=== PATIENT | female | born 1995 | race Caucasian/White ===

== ENCOUNTER 2016-11-02 09:49 | Emergency (ER) | payer BC ==
[~2016-11-02] VITALS: Ht 157.5 cm; Wt 127.0 kg
[2016-11-02 09:50] VITALS: BP 162/87; PULSE 80; RESP 19; TEMP 97.2; O2SAT 97
[2016-11-02 10:28] LABS: BILIRUBIN,URINE 1+ (NEGATIVE); BLOOD, URINE 3+ (NEGATIVE); CLARITY/URINE CLOUDY (CLEAR); COLOR,URINE RED (YELLOW); GLUCOSE,URINE NEGATIVE (NEGATIVE); KETONES,URINE 1+ (NEGATIVE); LEUKOCYTE ESTERASE ,URINE TRACE (NEGATIVE); NITRITE, URINE NEGATIVE (NEGATIVE); PROTEIN URINE 2+ (NEGATIVE)
[2016-11-02 10:55] LABS: BACTERIA,URINE FEW /HPF (None Seen); RBC,URINE >100 /HPF (0-3)
[2016-11-02 11:12] LABS: BASOPHILS # (AUTO) 0.1 K/uL (0.0-0.2); BASOPHILS % (AUTO) 0.6 % (0.0-2.0); EOSINOPHILS # (AUTO) 0.4 K/uL (0.0-0.4); EOSINOPHILS % (AUTO) 4.4 % (0.0-4.0); HEMATOCRIT 38.6 % (36-48); HEMOGLOBIN 13.1 g/dL (12.0-16.0); LYMPHOCYTES # (AUTO) 1.3 K/uL (1.0-5.5); LYMPHOCYTES % (AUTO) 14.8 % (20.5-51.5); MEAN CORPUSCULAR HEMOGLOBIN 28 pg (27-31); MEAN CORPUSCULAR HGB CONC 34 % (32-36); MEAN CORPUSCULAR VOLUME 84 fL (79.0-98.0); MONOCYTES # (AUTO) 0.4 K/uL (0.0-1.0); MONOCYTES % (AUTO) 4.5 % (1.7-9.3); NEUTROPHILS # (AUTO) 6.6 K/uL (1.8-7.7); NEUTROPHILS % (AUTO) 75.7 % (40.0-70.0); PLATELET COUNT (AUTO) 306 K/uL (130-430); RED BLOOD CELL COUNT(AUTO) 4.61 MIL/uL (4.2-6.2); RED CELL DISTRIBUTION WIDTH 13.6 % (9.0-15.0); WHITE BLOOD COUNT (AUTO) 8.8 K/uL (4.8-10.8)
[2016-11-02 11:44] LABS: CALCIUM 9.1 mg/dL (8.4-11.0); CREATININE 0.62 mg/dL (0.55-1.30); POTASSIUM 4.3 mmol/L (3.5-5.1)
[2016-11-02 12:13] LABS: TOTAL BILIRUBIN 0.8 mg/dL (0.0-1.0)
[2016-11-02 14:22] VITALS: BP 149/86; PULSE 81; RESP 18; TEMP 97; O2SAT 98
== END 2016-11-02 14:22 | disposition home or self-care (01) ==
LOC: SED 09:49
DX: R10.30 Lower abdominal pain, unspecified (principal); J45.909 Unspecified asthma, uncomplicated; Z88.1 Allergy status to other antibiotic agents
CPT/HCPCS: 36415; 80053; 81000-TC; 81025; 82150-TC; 83690-TC; 84703; 85025; 85610-TC; 85730-TC; 87086; 99285

== ENCOUNTER 2018-04-01 09:33 | Emergency (ER) | payer BC ==
[~2018-04-01] VITALS: Ht 157.5 cm; Wt 99.8 kg
[2018-04-01 09:55] VITALS: BP_SYST 137
[2018-04-01 10:18] VITALS: BP_SYST 137
== END 2018-04-01 10:18 | disposition home or self-care (01) ==
LOC: SED 09:33
DX: R51 Headache (principal); R03.0 Elevated blood-pressure reading, without diagnosis of hypertension; J45.909 Unspecified asthma, uncomplicated; Z88.1 Allergy status to other antibiotic agents
CPT/HCPCS: 81025; 99283

== ENCOUNTER 2019-07-30 03:09 | Emergency (ER) | payer BC ==
[~2019-07-30] VITALS: Ht 157.5 cm; Wt 102.1 kg
[2019-07-30 03:15] VITALS: BP_SYST 141
--- NOTE | 2019-07-30 03:15 | NUR ---
Patient to ER bed 7 to gown for evaluation. Side rails up.
--- NOTE | 2019-07-30 03:30 | NUR ---
ER at bedside examining patient.
--- NOTE | 2019-07-30 03:45 | NUR ---
Pt went to ct scan, tolerated well. Will cont. to monitor.
[2019-07-30 03:57] LABS: STREPTOCOCCUS A SCREEN (RAPID) NEGATIVE (NEGATIVE)
--- NOTE | 2019-07-30 04:00 | NUR ---
Pt resting comfortably in bed, no signs of acute distress. Will cont. to monitor.
[2019-07-30 04:10] LABS: MONOTEST NEGATIVE (NEGATIVE)
[2019-07-30] MEDS ORDERED: PREDNISONE 20 MG TABLET PO ONE (04:15)
[2019-07-30] MEDS ORDERED: FAMOTIDINE 20 MG TABLET PO ONE (04:15)
[2019-07-30 04:25] LABS: BASOPHILS # (AUTO) 0.1 K/uL (0.0-0.2); BASOPHILS % (AUTO) 0.8 % (0.0-2.0); EOSINOPHILS # (AUTO) 0.7 K/uL (0.0-0.4); HEMATOCRIT 36.1 % (36-48); HEMOGLOBIN 12.3 g/dL (12.0-16.0); LYMPHOCYTES # (AUTO) 2.5 K/uL (1.0-5.5); LYMPHOCYTES % (AUTO) 28.4 % (20.5-51.5); MEAN CORPUSCULAR HEMOGLOBIN 30 pg (27-31); MEAN CORPUSCULAR HGB CONC 34 % (32-36); MEAN CORPUSCULAR VOLUME 87 fL (79.0-98.0); MONOCYTES # (AUTO) 0.6 K/uL (0.0-1.0); MONOCYTES % (AUTO) 6.7 % (1.7-9.3); NEUTROPHILS # (AUTO) 4.9 K/uL (1.8-7.7); NEUTROPHILS % (AUTO) 56.1 % (40.0-70.0); PLATELET COUNT (AUTO) 296 K/uL (130-430); RED BLOOD CELL COUNT(AUTO) 4.15 MIL/uL (4.2-6.2); RED CELL DISTRIBUTION WIDTH 14.3 % (9.0-15.0); WHITE BLOOD COUNT (AUTO) 8.7 K/uL (4.8-10.8)
[2019-07-30 04:28] LABS: CALCIUM 8.7 mg/dL (8.4-11.0); CREATININE 0.64 mg/dL (0.55-1.30); POTASSIUM 3.4 mmol/L (3.5-5.1)
[2019-07-30 04:34] LABS: ALBUMIN 3.9 g/dL (3.4-4.8); TOTAL BILIRUBIN 0.6 mg/dL (0.0-1.0)
[2019-07-30 05:53] VITALS: BP_SYST 141
--- NOTE | 2019-07-30 05:53 | NUR ---
Patient given written and verbal discharge instructions and verbalizes understanding. ER MD Dr. Weiss discussed with patient the results and treatment provided. Patient in stable condition. ID arm band removed. Patient educated on pain management and to follow up with PMD. Pain Scale 0/10. Opportunity for questions provided and answered. Medication side effect fact sheet provided.
== END 2019-07-30 05:53 | disposition home or self-care (01) ==
LOC: SED 03:09
DX: T78.40XA Allergy, unspecified, initial encounter (principal); X58.XXXA Exposure to other specified factors, initial encounter; R20.0 Anesthesia of skin; R07.89 Other chest pain; M79.602 Pain in left arm; Z88.0 Allergy status to penicillin
CPT/HCPCS: 36415; 70450; 80053; 81025; 82550; 84484; 85025; 86308; 86403; 87081; 93005; 99284; J7512

== ENCOUNTER 2020-06-13 09:38 | Emergency (ER) | payer BC ==
[~2020-06-13] VITALS: Ht 157.5 cm; Wt 113.4 kg
[2020-06-13 09:38] VITALS: BP_SYST 121
--- NOTE | 2020-06-13 09:38 | NUR ---
BROUGHT BACK TO BED #7 AND TRIAGED.REPORT GIVEN TO JOSÉ LUIS
--- NOTE | 2020-06-13 09:40 | NUR ---
Patient arrived in the ED c/o abdominal pain and nausea and vomiting for the last 2 days. Denied any chest pain or shortness of breath. Denied any fevers and chills. Patient is alert and oriented x4, respirations even and unlabored, speaking in full sentences, and ambulating with a steady gait. VSS, pain level 10/10. Informed of the approximate wait time. Instructed to notify ED staff for any changes in condition or worsening of symptoms while waiting to be seen by an ED provider. Patient verbalized understanding.
[2020-06-13] MEDS ORDERED: NACL 0.9% 1,000 ML IV ONE (09:51)
--- NOTE | 2020-06-13 09:55 | NUR ---
# 20 gauge angiocath placed to RAC. Use of asceptic technique. Opsite placed over site. Blood return noted. Blood for lab drawn from site. Flushed with 10 cc of normal saline. No evidence of infiltration noted. Patient tolerated well.
--- NOTE | 2020-06-13 09:57 | NUR ---
ER Dr. Peters at bedside examining patient.
--- NOTE | 2020-06-13 09:59 | NUR ---
Urine specimen collected and dipped as ordered by Dr. Peters. Patient tolerated the activity well.
[2020-06-13] MEDS ORDERED: ONDANSETRON HCL 4 MG/2 ML VIAL IVP ONE (10:00)
[2020-06-13] MEDS ORDERED: KETOROLAC TROMETHAMINE 30 MG VIAL IVP ONE (10:15)
--- NOTE | 2020-06-13 10:15 | NUR ---
Administered Toradol, Zofran IVP as ordered by Dr. Peters. Patient tolerated the medications well. See eMAR for details.
--- NOTE | 2020-06-13 10:40 | NUR ---
Administered Morphine Sulfate IVP as ordered by Dr. Peters. Patient tolerated the medications well. See eMAR for details.
[2020-06-13] MEDS ORDERED: MORPHINE 4 MG/ML INJ. SYRINGE IVP ONE (10:45)
--- NOTE | 2020-06-13 11:46 | NUR ---
DR BERGER AT BEDSIDE FOR RE-EVALUATION
[2020-06-13 11:56] VITALS: BP_SYST 132
--- NOTE | 2020-06-13 11:58 | NUR ---
Patient given written and verbal discharge instructions and verbalizes understanding. ER MD discussed with patient the results and treatment provided. Patient in stable condition. ID arm band removed. IV catheter removed intact and dressing applied, no active bleeding. Rx of given. Patient educated on pain management and to follow up with PMD. Pain Scale 2/10 Opportunity for questions provided and answered. Medication side effect fact sheet provided.
== END 2020-06-13 11:58 | disposition home or self-care (01) ==
LOC: SED 09:38
DX: R51 Headache (principal); R11.2 Nausea with vomiting, unspecified; J45.909 Unspecified asthma, uncomplicated; Z88.1 Allergy status to other antibiotic agents
CPT/HCPCS: 81002; 81025; 96374; 96375; 99284; J1885; J2270; J2405; J7030

== ENCOUNTER 2020-07-02 05:55 | Day surgery (SDC) | payer BC, SELFPAY ==
[~2020-07-02] VITALS: Ht 157.5 cm; Wt 108.9 kg
[2020-07-02 07:20] LABS: HCG,QUAL RESULT NEGATIVE (NEGATIVE)
[2020-07-02] MEDS ORDERED: hydrALAZINE HCL 20 MG/ML VIAL IVP PRN (08:15)
[2020-07-02] MEDS ORDERED: HYDROmorphone 1 MG INJ. 1 MG/ML AMPUL IVP PRN ×2 (08:15)
[2020-07-02] MEDS ORDERED: LR 1,000 ML IV SCH (08:15)
[2020-07-02] MEDS ORDERED: MEPERIDINE HCL/PF 25 MG/ML DISP.SYRIN IVP PRN (08:15)
[2020-07-02] MEDS ORDERED: METOCLOPRAMIDE HCL 10 MG/2 ML VIAL IVP PRN (08:15)
[2020-07-02] MEDS ORDERED: LABETALOL 100 MG/ 20ML VIAL IVP PRN (08:15)
[2020-07-02] MEDS ORDERED: MIDAZOLAM HCL 2 MG/2 ML VIAL (VERSED) IVP PRN (08:15)
[2020-07-02] MEDS ORDERED: ONDANSETRON HCL 4 MG/2 ML VIAL IVP PRN (08:15)
[2020-07-02 10:40] VITALS: BP_SYST 136
[2020-07-02] MEDS ORDERED: KETOROLAC TROMETHAMINE 30 MG VIAL IVP ONE (11:15)
[2020-07-02] MEDS ORDERED: KETOROLAC TROMETHAMINE 30 MG VIAL ONE (11:34)
== END 2020-07-02 12:40 | disposition still patient (30) ==
LOC: SMU 05:55 → SDS 05:55
PROVIDERS: ATTEND Otolaryngology
DX: J32.4 Chronic pansinusitis (principal); J30.5 Allergic rhinitis due to food; J34.89 Other specified disorders of nose and nasal sinuses; Z79.899 Other long term (current) drug therapy; Z20.828 Contact with and (suspected) exposure to other viral communicable diseases
CPT/HCPCS: 30140; 30520; 31237; 31267; 31298; 84703; 87070; 87075; 87101; 87116; 88305; C1726; J1885; U0003; 88311

== ENCOUNTER 2020-07-14 12:33 | Inpatient (IN) | payer BC, SELFPAY ==
[~2020-07-14] VITALS: Ht 157.5 cm; Wt 115.7 kg
[2020-07-14 13:35] LABS: BASOPHILS % (AUTO) 0.6 % (0.0-2.0); EOSINOPHILS # (AUTO) 0.1 K/uL (0.0-0.4); EOSINOPHILS % (AUTO) 1.9 % (0.0-4.0); HEMOGLOBIN 7.5 g/dL (12.0-16.0); LYMPHOCYTES # (AUTO) 1.6 K/uL (1.0-5.5); LYMPHOCYTES % (AUTO) 26.4 % (20.5-51.5); MEAN CORPUSCULAR HEMOGLOBIN 29 pg (27-31); MEAN CORPUSCULAR HGB CONC 34 % (32-36); MEAN CORPUSCULAR VOLUME 84 fL (79.0-98.0); MONOCYTES # (AUTO) 0.4 K/uL (0.0-1.0); NEUTROPHILS % (AUTO) 65.1 % (40.0-70.0); PLATELET COUNT (AUTO) 232 K/uL (130-430); RED CELL DISTRIBUTION WIDTH 14.7 % (9.0-15.0); WHITE BLOOD COUNT (AUTO) 6.2 K/uL (4.8-10.8)
[2020-07-14 13:52] LABS: CREATININE 0.55 mg/dL (0.55-1.30); HEMATOCRIT 21.9 % (36-48); POTASSIUM 3.7 mmol/L (3.5-5.1)
[2020-07-14] MEDS ORDERED: METOCLOPRAMIDE HCL 10 MG/2 ML VIAL IVP PRN (14:45)
[2020-07-14] MEDS ORDERED: 0.45% NACL 1,000 ML IV SCH (15:38)
[2020-07-14] MEDS ORDERED: DIPHENHYDRAMINE HCL 12.5 MG/5 ML UDC PO PRN (15:45)
[2020-07-14] MEDS ORDERED: CIPROFLOXACIN HCL 500 MG TABLET PO ONE (15:45)
[2020-07-14] MEDS: HYDROmorphone 1 MG INJ. 1 MG/ML AMPUL IVP PRN (16:15)
[2020-07-14] MEDS ORDERED: HYDROmorphone 1 MG INJ. 1 MG/ML AMPUL ONE (16:34)
--- NOTE | 2020-07-14 19:38 | NUR ---
ADMISSION: The patient, YONATHAN BLUE, 25 y/o, F admitted by DR. SKINNER, was given written information regarding hospital policies, unit procedures and contact persons. Valuables were checked and DOCUMENTED. Addendum: 07/14/20 at 2257 by Vivian Mascorro RN PER OR NURSE, THEY DID NOT DO MRSA SWAB BEFORE SURGERY. CURRENTLY UNABLE TO PERFORM SWAB DUE TO DX AND DRESSING.
[2020-07-14 19:41] VITALS: BP_SYST 129
[2020-07-14 20:00] VITALS: BP_SYST 135
--- NOTE | 2020-07-14 20:00 | NUR ---
pt.received s/p surgery;per ;nasal.nasal packing extant.packing in place,no drainage.v/s post -op series initiated. pt.has presented pain.to review emar med-list.pt.presents general status stable.respiratory status stable;unlabored@room air.02-sat%=100%.pt.had inquired r/e;diet;if she could eat regular food.to review the orders.r/r;diet status.pt.capable to reposition self.pt.presents iv access location:[email or web address].antecubital.call light/telephone placed w/in access of the pt.
[2020-07-14] MEDS: CIPROFLOXACIN HCL 500 MG TABLET PO SCH (20:23)
[2020-07-14] MEDS: MORPHINE 2 MG/ML INJ. SYRINGE IVP PRN (20:25)
--- NOTE | 2020-07-14 20:30 | NUR ---
i have administered morphine:2mg ivp.to assess the efficacy of the pain medication per pain mgx protocol.i have provided snacks/juice to the pt.2/t diet status order.
--- NOTE | 2020-07-14 21:00 | NUR ---
2100p medication.i have administered cipro:po.pt.capable to ingest the po medication w/out difficulty.
[2020-07-14] MEDS: HYDROcodone/ACETAMIN 5-325 MG TAB (NORCO/ VICODIN) PO PRN (21:24)
--- NOTE | 2020-07-14 21:30 | NUR ---
upon re-assessment of the efficacy of the pain medication pt.stated the pain remains present.i have administered norco;5/325mg po x2 tabs.to assess the efficacy of the pain medication per pain mgx protocol.no additional requests posited@this hour.
[2020-07-14] MEDS ORDERED: CIPROFLOXACIN HCL 500 MG TABLET PO SCH (22:00)
--- NOTE | 2020-07-14 22:00 | NUR ---
pt.assessed.pt.presents quiescent affect;calm,somnolent.per flacc pain mgx pt.absent facial grimaces/body posturing. pt.capable to reposition self.call light/telephone w/in reach of the pt.
[2020-07-14 22:30] VITALS: BP_SYST 136
--- NOTE | 2020-07-14 22:30 | NUR ---
the post-op v/s series has been completed.i have apprised the pt the subsequent v/s to be assessed@midnight.
[2020-07-15] VITALS: BP_SYST 145
--- NOTE | 2020-07-15 | NUR ---
pt.assessed.v/s assessed values wnl.no c/o pain,nausea.no requests posited@this hour.general status stable.respiratory status stabl;unlabored;02-sat%=98.pt.capable to reposition self.call light/telephone w/in reach of the pt.
--- NOTE | 2020-07-15 02:00 | NUR ---
pt.assessed.pt.presents quiescent affect;calm,somnolent.per flacc pain mgx pt.absent facial grimaces/body posturing. pt.capable to reposition self.call light/telephone w/in access of the pt.
[2020-07-15 08:17] LABS: CALCIUM 7.8 mg/dL (8.4-11.0); CREATININE 0.52 mg/dL (0.55-1.30); POTASSIUM 3.7 mmol/L (3.5-5.1)
[2020-07-15 08:35] VITALS: BP_SYST 122
[2020-07-15 08:39] LABS: BASOPHILS % (AUTO) 0.8 % (0.0-2.0); EOSINOPHILS # (AUTO) 0.5 K/uL (0.0-0.4); EOSINOPHILS % (AUTO) 7.9 % (0.0-4.0); HEMOGLOBIN 7.3 g/dL (12.0-16.0); LYMPHOCYTES # (AUTO) 2.5 K/uL (1.0-5.5); LYMPHOCYTES % (AUTO) 41.9 % (20.5-51.5); MEAN CORPUSCULAR HEMOGLOBIN 29 pg (27-31); MEAN CORPUSCULAR HGB CONC 34 % (32-36); MEAN CORPUSCULAR VOLUME 85 fL (79.0-98.0); MONOCYTES # (AUTO) 0.3 K/uL (0.0-1.0); MONOCYTES % (AUTO) 5.4 % (1.7-9.3); NEUTROPHILS # (AUTO) 2.6 K/uL (1.8-7.7); PLATELET COUNT (AUTO) 244 K/uL (130-430); RED BLOOD CELL COUNT(AUTO) 2.55 MIL/uL (4.2-6.2); WHITE BLOOD COUNT (AUTO) 5.9 K/uL (4.8-10.8)
[2020-07-15] MEDS: HYDROmorphone 1 MG INJ. 1 MG/ML AMPUL IVP PRN ×2 (08:50→14:58)
[2020-07-15] MEDS: ONDANSETRON HCL 4 MG/2 ML VIAL IVP PRN ×4 (08:55→18:48)
[2020-07-15] MEDS: CIPROFLOXACIN HCL 500 MG TABLET PO SCH ×2 (10:00→22:00)
[2020-07-15 10:04] LABS: HEMATOCRIT 21.6 % (36-48)
--- NOTE | 2020-07-15 11:53 | NUR ---
CONSULTATION PAGED REASON FOR CONSULTATION:SEVEREANEMIA WAS CONSULT CALLED?Y PERSON WHO WAS NOTIFIED:VERO CONSULTING PHYSICIAN:HUMBERTO LLAMAS PHARMACIST AIDE SPECIALTY:INTERNAL MEDICINE PHARMACIST AIDE PHONE NUMBER:[phone] REQUESTING PHYSICIAN:HELLEN MCKEON
--- NOTE | 2020-07-15 12:15 | NUR ---
PATIENT WAS HAVING PAIN 8/10 WAS GIVEN NORCO, PATIENT THREW UP PILLS. ZOFRAN WAS THEN GIVEN FOR NAUSEA. NAUSEA WAS RESOLVED.
--- NOTE | 2020-07-15 12:20 | NUR ---
PATIENT IN PAIN 10/10, GAVE MORPHINE. PAIN REDUCED TO 2/10. WILL CONTINUE TO MONITOR PATIENT. PATIENT ALSO STATED IV FELT WET, IV WAS REASSESSED. IV PATENT AND INTACT.
[2020-07-15] MEDS: HYDROcodone/ACETAMIN 5-325 MG TAB (NORCO/ VICODIN) PO PRN ×4 (12:27→21:15)
[2020-07-15] MEDS: MORPHINE 2 MG/ML INJ. SYRINGE IVP PRN ×5 (12:50→18:21)
--- NOTE | 2020-07-15 13:00 | NUR ---
PATIENT HAS BEEN COMPLAINING OF PAIN AND NAUSEA, MEDICATIONS HAVE BEEN GIVEN. MEDICATIONS CONTROL THE PAIN AND NAUSEA.
[2020-07-15] MEDS: LR 1,000 ML IV SCH (13:45)
--- NOTE | 2020-07-15 14:10 | NUR ---
PATIENT THREW UP MEDICATIONS GIVEN BY MOUTH, ZOFRAN WAS GIVEN AGAIN. WILL CONTINUE TO MONITOR FOR NAUSEA.
[2020-07-15] MEDS ORDERED: CHOLECALCIFEROL (VITAMIN D3) 2,000 UNIT TABLET PO ONE (15:30)
[2020-07-15] MEDS ORDERED: CALCIUM CARBONATE 500 MG/ TAB.CHEW PO ONE (15:30)
[2020-07-15] MEDS ORDERED: WATER FOR IRRIGATION,STERILE 1,000 ML IRRIG.SOLN IR ONE (15:35)
[2020-07-15] MEDS ORDERED: SUCCINYLCHOLINE CHLORIDE 20 MG/ML(QUELICIN) ONE (15:35)
[2020-07-15] MEDS ORDERED: NS IRRIG SOLN 1000 ML IR ONE (15:35)
[2020-07-15] MEDS ORDERED: PROPOFOL 200MG/ 20ML VIAL (DIPRIVAN) IV ONE (15:35)
[2020-07-15] MEDS ORDERED: fentaNYL CITRATE/PF 100 MCG/2 ML AMP ONE (15:35)
[2020-07-15] MEDS ORDERED: SEVOFLURANE 15 MIN GAS INH ONE (15:35)
[2020-07-15] MEDS ORDERED: ROCURONIUM BROMIDE 10 MG/ML (ZEMURON) ONE (15:35)
[2020-07-15] MEDS ORDERED: MUPIROCIN 2% TOPICAL OINTMENT 22 GM ONE (15:35)
[2020-07-15] MEDS ORDERED: OXYMETAZOLINE HCL 0.05% NASAL SPRAY NS ONE (15:35)
[2020-07-15] MEDS ORDERED: CEFAZOLIN 1 GM IVPB PREMIX 50 ML IV ONE (15:35)
[2020-07-15] MEDS ORDERED: FAMOTIDINE 20 MG TABLET PO ONE (16:00)
[2020-07-15] MEDS: cefTRIAXone 1 GM in D5W 50 ML IV SCH (16:00)
[2020-07-15 16:54] LABS: TOTAL IRON BIND. CAPACITY 254 ug/dL (250-450)
--- NOTE | 2020-07-15 17:00 | NUR ---
PATIENT STATED IV FEELS WET, ASSESSED SOME LEAKING NOTED, WILL REPLACE IV.
[2020-07-15] MEDS ORDERED: ONDANSETRON HCL 4 MG/2 ML VIAL IVP PRN (18:30)
[2020-07-15] MEDS ORDERED: ACETAMINOPHEN 500 MG TABLET PO PRN (18:30)
[2020-07-15] MEDS ORDERED: traMADol HCL HCL 50 MG TABLET (ULTRAM) PO PRN (18:30)
[2020-07-15] MEDS: CALCIUM CARBONATE 500 MG/ TAB.CHEW PO SCH ×2 (19:27→21:13)
[2020-07-15] MEDS: LACTOBACILLUS RHAMNOSUS GG 1 CAP CAPSULE PO SCH (21:14)
[2020-07-16] VITALS: BP_SYST 148
[2020-07-16] MEDS: ONDANSETRON HCL 4 MG/2 ML VIAL IVP PRN ×2 (01:12→08:51)
[2020-07-16] MEDS: HYDROcodone/ACETAMIN 5-325 MG TAB (NORCO/ VICODIN) PO PRN ×4 (04:24→20:41)
[2020-07-16] MEDS: LR 1,000 ML IV SCH ×2 (04:37→14:53)
[2020-07-16 07:10] LABS: BASOPHILS % (AUTO) 0.7 % (0.0-2.0); EOSINOPHILS # (AUTO) 0.4 K/uL (0.0-0.4); EOSINOPHILS % (AUTO) 6.2 % (0.0-4.0); LYMPHOCYTES % (AUTO) 33.7 % (20.5-51.5); MEAN CORPUSCULAR HEMOGLOBIN 29 pg (27-31); MEAN CORPUSCULAR HGB CONC 34 % (32-36); MEAN CORPUSCULAR VOLUME 84 fL (79.0-98.0); MONOCYTES # (AUTO) 0.4 K/uL (0.0-1.0); MONOCYTES % (AUTO) 6.2 % (1.7-9.3); NEUTROPHILS # (AUTO) 3.1 K/uL (1.8-7.7); NEUTROPHILS % (AUTO) 53.2 % (40.0-70.0); PLATELET COUNT (AUTO) 258 K/uL (130-430); RED BLOOD CELL COUNT(AUTO) 2.47 MIL/uL (4.2-6.2); RED CELL DISTRIBUTION WIDTH 14.7 % (9.0-15.0); RETICULOCYTE COUNT 2.1 % (0.5-1.5); WHITE BLOOD COUNT (AUTO) 5.9 K/uL (4.8-10.8)
[2020-07-16 07:57] LABS: CALCIUM 8.2 mg/dL (8.4-11.0); CREATININE 0.49 mg/dL (0.55-1.30); POTASSIUM 3.7 mmol/L (3.5-5.1); TOTAL BILIRUBIN 0.5 mg/dL (0.0-1.0)
[2020-07-16 07:58] LABS: PROTHROMBIN TIME 10.5 SECS (9.5-12.5)
[2020-07-16 08:00] VITALS: BP_SYST 137
--- NOTE | 2020-07-16 08:00 | NUR ---
PATIENT RESTING IN BED. AAO X4
[2020-07-16] MEDS: CIPROFLOXACIN HCL 500 MG TABLET PO SCH ×2 (08:51→22:03)
[2020-07-16] MEDS: FERROUS SULFATE 325 MG TABLET.DR PO SCH ×3 (08:51→20:39)
[2020-07-16] MEDS: CALCIUM CARBONATE 500 MG/ TAB.CHEW PO SCH ×4 (08:52→20:39)
[2020-07-16] MEDS: CHOLECALCIFEROL (VITAMIN D3) 2,000 UNIT TABLET PO SCH (08:52)
[2020-07-16] MEDS: LACTOBACILLUS RHAMNOSUS GG 1 CAP CAPSULE PO SCH ×2 (08:52→20:39)
[2020-07-16] MEDS: FAMOTIDINE 20 MG TABLET PO SCH ×2 (09:06→20:39)
[2020-07-16 09:09] LABS: FOLATE (FOLIC ACID) 7.1 ng/mL (>3.0)
--- NOTE | 2020-07-16 09:13 | NUR ---
OPENING NOTE. PATIENT ALERT ORIENTED X 4. X1 EMESIS 20ML YELLOWISH. PAIN 8/10 TO ABDOMEN, ACHING NON RADIATING. PAIN MEDICATION GIVEN ORDERED. WILL CONTINUE TO MONITOR.
[2020-07-16 09:37] LABS: HEMATOCRIT 20.7 % (36-48)
[2020-07-16] MEDS ORDERED: MULTIVITAMINS TAB 1 TABLET PO ONE (10:00)
--- NOTE | 2020-07-16 10:00 | NUR ---
CRITICAL REPORT HGB 20.7, HGB 7.0 REPORTED TO CHARGE NURSE AND DR. OGLESBY. PATIENT IS ASSYMPTOMATIC. WILL CONTINUE TO MONITOR.
--- NOTE | 2020-07-16 12:00 | NUR ---
TOLERATING CLEAR LIQUID DIET. WILL CONTINUE TO MONITOR
[2020-07-16 12:10] VITALS: BP_SYST 126
--- NOTE | 2020-07-16 14:00 | NUR ---
PATIENT SEEN BY DR. OGLESBY. PAIN MEDICATION GIVEN ORDERED. NO NASAL BLEED. WILL CONTINUE TO MONITOR
[2020-07-16] MEDS ORDERED: METOCLOPRAMIDE HCL 10 MG/2 ML VIAL IVP ONE (14:15)
[2020-07-16 14:37] LABS: BASOPHILS % (AUTO) 0.8 % (0.0-2.0); HEMOGLOBIN 7.3 g/dL (12.0-16.0); LYMPHOCYTES # (AUTO) 1.6 K/uL (1.0-5.5); MONOCYTES # (AUTO) 0.3 K/uL (0.0-1.0); RED BLOOD CELL COUNT(AUTO) 2.57 MIL/uL (4.2-6.2)
--- NOTE | 2020-07-16 14:39 | NUR ---
labs pending results. will continue to monitor.
[2020-07-16 14:48] LABS: EOSINOPHILS # (AUTO) 0.3 K/uL (0.0-0.4); EOSINOPHILS % (AUTO) 4.8 % (0.0-4.0); LYMPHOCYTES % (AUTO) 29.3 % (20.5-51.5); MEAN CORPUSCULAR HEMOGLOBIN 29 pg (27-31); MEAN CORPUSCULAR HGB CONC 34 % (32-36); MEAN CORPUSCULAR VOLUME 84 fL (79.0-98.0); MONOCYTES % (AUTO) 6.2 % (1.7-9.3); NEUTROPHILS # (AUTO) 3.2 K/uL (1.8-7.7); NEUTROPHILS % (AUTO) 58.9 % (40.0-70.0); PLATELET COUNT (AUTO) 265 K/uL (130-430); RED CELL DISTRIBUTION WIDTH 14.9 % (9.0-15.0); WHITE BLOOD COUNT (AUTO) 5.4 K/uL (4.8-10.8)
[2020-07-16 15:21] LABS: HEMATOCRIT 21.6 % (36-48)
[2020-07-16 15:53] VITALS: BP_SYST 133
--- NOTE | 2020-07-16 16:00 | NUR ---
CRITICAL LAB VALUE RECEIVED AT 1521 AND REPORTED TO CHARGE NURSE AND DR. OGLESBY. HCT 21.7 HGB 7.3
--- NOTE | 2020-07-16 16:48 | NUR ---
Dietitian Recommendations * Recommend continuing full liquid diet * Consider advance to regular diet if/when medically appropriate * Pt may benefit from weight management MNT prior to D/C ABNER, RD Please refer to Nutrition Assessment for details. Addendum: 07/16/20 at [address] Amended: Links added.
[2020-07-16] MEDS: cefTRIAXone 1 GM in D5W 50 ML IV SCH (17:54)
--- NOTE | 2020-07-16 18:00 | NUR ---
REGLAN AND ROCEPHIN ADMINISTERED ORDERED. PATIENT TOLERATED WELL. DENIES NAUSEA. NO NASAL BLEED. WILL CONTINUE TO MONITOR PATIENT.
--- NOTE | 2020-07-16 19:30 | NUR ---
OPENING NOTES: Received report from dayshift nurse. Patient is sitting in bed alert and oriented x4 with no s/s of distress or discomfort. She does not have any concerns at this time and has unlabored breathing on room air. IV noted on LAC with dry and intact dressing. Ensured all safety precautions. Bed is locked and in the lowest position. Call light within reach.
[2020-07-16 20:00] VITALS: BP_SYST 129
[2020-07-16] MEDS: MULTIVITAMINS TAB 1 TABLET PO SCH (20:39)
--- NOTE | 2020-07-16 20:45 | NUR ---
MEDICATION ADMINISTRATION: Patient is laying in bed with no s/s of distress or discomfort. She is A & O X4 and c/o headache on left side of head, requesting [place] for pain. Vital signs are within normal range. Medications given as ordered by physician, pt tolerated well. Educated patient about the effects and side effects of [place] such and drowsiness and constipation and advised her to increase her water intake. Patient verbalized understanding and does not have any questions or concerns at this time. Bed is in the lowest position and call light with in reach. Will continue to monitor patient.
--- NOTE | 2020-07-16 22:00 | NUR ---
RN ROUNDS / MEDICATION ADMINISTRATION: Patient is laying in bed with no s/s of distress or discomfort. Administered scheduled medication as ordered, she tolerated well. Will continue to monitor patient.
[2020-07-17] VITALS: BP_SYST 134
--- NOTE | 2020-07-17 | NUR ---
RN ROUNDS / MEDICATION ADMINISTRATION: Patient is laying in bed and is currently asleep with no s/s of distress or discomfort. Vital signs are within normal limits and patient has unlabored breathing on room air. Administered scheduled medication as ordered, she tolerated well. Ensured all safety precautions. Bed is locked and in the lowest position with call light within reach. Will continue to monitor patient.
--- NOTE | 2020-07-17 01:52 | NUR ---
RN ROUNDS: Patient is laying in bed and appears to be asleep. She is not exhibiting any s/s of distress or discomfort. Will continue to monitor patient.
--- NOTE | 2020-07-17 04:00 | NUR ---
RN ROUNDS: Patient is laying in bed and is currently asleep. She is not exhibiting any s/s of distress or discomfort. Will continue to monitor patient.
[2020-07-17] MEDS: METOCLOPRAMIDE HCL 10 MG/2 ML VIAL IVP SCH ×3 (05:34→12:29)
--- NOTE | 2020-07-17 06:12 | NUR ---
CLOSING NOTES: Patient is laying in bed alert and oriented x4 with no s/s of distress or discomfort. She states her headache has not returned since taking [place] last night. 18 g IV on LAC patent and intact with dry and intact dressing. Ensured all safety precautions. Bed is locked and in the lowest position. Call light within reach. All needs were met throughout shift. Will endorse to dayshift nurse.
[2020-07-17 06:23] LABS: EOSINOPHILS # (AUTO) 0.3 K/uL (0.0-0.4); EOSINOPHILS % (AUTO) 6.7 % (0.0-4.0); HEMOGLOBIN 7.2 g/dL (12.0-16.0); LYMPHOCYTES # (AUTO) 1.8 K/uL (1.0-5.5); LYMPHOCYTES % (AUTO) 38.3 % (20.5-51.5); MEAN CORPUSCULAR HEMOGLOBIN 29 pg (27-31); MEAN CORPUSCULAR HGB CONC 34 % (32-36); MEAN CORPUSCULAR VOLUME 85 fL (79.0-98.0); MONOCYTES # (AUTO) 0.3 K/uL (0.0-1.0); MONOCYTES % (AUTO) 6.4 % (1.7-9.3); NEUTROPHILS # (AUTO) 2.3 K/uL (1.8-7.7); NEUTROPHILS % (AUTO) 47.6 % (40.0-70.0); PLATELET COUNT (AUTO) 263 K/uL (130-430); RED BLOOD CELL COUNT(AUTO) 2.52 MIL/uL (4.2-6.2); WHITE BLOOD COUNT (AUTO) 4.7 K/uL (4.8-10.8)
[2020-07-17 07:29] LABS: HEMATOCRIT 21.3 % (36-48)
[2020-07-17 07:33] LABS: ALBUMIN 3.2 g/dL (3.4-4.8); CALCIUM 8.2 mg/dL (8.4-11.0); CREATININE 0.45 mg/dL (0.55-1.30); FREE T4 (FREE THYROXINE) 1.4 ng/dl (0.8-1.5); PHOSPHORUS 4.6 mg/dL (2.7-4.5); POTASSIUM 3.5 mmol/L (3.5-5.1); THYROID STIMULATING HORMONE 1.37 uIu/mL (0.36-3.74); TOTAL BILIRUBIN 0.5 mg/dL (0.0-1.0)
[2020-07-17] MEDS: MULTIVITAMINS TAB 1 TABLET PO SCH (09:07)
[2020-07-17] MEDS: CHOLECALCIFEROL (VITAMIN D3) 2,000 UNIT TABLET PO SCH (09:07)
[2020-07-17] MEDS: LACTOBACILLUS RHAMNOSUS GG 1 CAP CAPSULE PO SCH (09:07)
[2020-07-17] MEDS: CALCIUM CARBONATE 500 MG/ TAB.CHEW PO SCH ×2 (09:07→12:29)
[2020-07-17] MEDS: CIPROFLOXACIN HCL 500 MG TABLET PO SCH (09:07)
[2020-07-17] MEDS: FERROUS SULFATE 325 MG TABLET.DR PO SCH (09:08)
[2020-07-17] MEDS: FAMOTIDINE 20 MG TABLET PO SCH (09:08)
[2020-07-17 11:32] VITALS: BP_SYST 110
[2020-07-17] MEDS ORDERED: HYDR-4272 PO (15:38)
[2020-07-17] MEDS ORDERED: CIPR-211 PO (15:39)
[2020-07-17 15:42] VITALS: BP_SYST 130
[2020-07-17 15:47] VITALS: BP_SYST 136
[2020-07-17] MEDS ORDERED: Multivitamins Tab PO (15:55)
[2020-07-17] MEDS ORDERED: FAMO20TA8 PO (15:55)
[2020-07-17] MEDS ORDERED: ONDA4TAB5 SL (15:55)
[2020-07-17] MEDS ORDERED: LACT1CAP57 PO (15:55)
[2020-07-17] MEDS ORDERED: CALC500T63 PO (15:55)
[2020-07-17] MEDS ORDERED: VITD2000 PO (15:55)
--- NOTE | 2020-07-17 16:01 | NUR ---
very alert, oriented, no complaint of nasal discomfort, in light of the packing. made aware today her H & H up to 7.2/22.3 vs 7.0/20.7 on admission, strongly opposed to blood transfusion, if it ever happens. On FeS04 po, explained the medication will slowly move up her blood, again slowly, and constipation might happen. verbalized understanding. seen by ent, cleared from this point of view, patient to follow up next wed, appointment arrangement by dr Cheema, himself. now seen by attending, patient is discharged to home with written RX, all reviewed by the charge nurse. Escorted to the lobby by our staff, alert, oriented, no pain, no distress.
== END 2020-07-17 16:00 | disposition home or self-care (01) | DRG 151 ==
LOC: SDS 12:33 → SMU 12:33 → SDS 07-15 13:35 → SMU 07-15 13:46
PROVIDERS: ADMIT Otolaryngology; ATTEND Otolaryngology
PROC: 2Y41X5Z Packing of Nasal Region using Packing Material (ICD-10-PCS; principal; 2020-07-14 14:02)
DX: R04.0 Epistaxis (principal); D62 Acute posthemorrhagic anemia; Z68.42 Body mass index [BMI] 45.0-49.9, adult; J45.909 Unspecified asthma, uncomplicated; J33.9 Nasal polyp, unspecified; E66.01 Morbid (severe) obesity due to excess calories; E83.51 Hypocalcemia; K76.0 Fatty (change of) liver, not elsewhere classified; E03.9 Hypothyroidism, unspecified; G47.33 Obstructive sleep apnea (adult) (pediatric); E83.39 Other disorders of phosphorus metabolism; E07.81 Sick-euthyroid syndrome; Z90.49 Acquired absence of other specified parts of digestive tract; Z20.828 Contact with and (suspected) exposure to other viral communicable diseases
CPT/HCPCS: 36415; 76536-TC; 76700-TC; 80048; 80053; 80061; 82607; 82746; 83540-TC; 83550-TC; 83690-TC; 84100-TC; 84439; 84443-TC; 84703; 85025; 85044-TC; 85610-TC; 85730-TC; 86886; 86900; 86901; A4649; J0330; J0690; J0696; J1170; J2270; J2405; J2704; J2765; J3010; J7060; J7120